=== PATIENT | male | born 1950 | race Caucasian/White ===

== ENCOUNTER → 2023-01-01 | Outpatient (CLI) | payer MEDICARE ==
[2023-01-01 16:08] LABS: African American GFR (CKD) 63.2 (60.0-200.0); Anion Gap 8.2 mmol/L (10.00-18.00); BUN/Creat Ratio 18.23 Ratio (12.00-20.00); Blood Urea Nitrogen 23.7 mg/dL (9.0-27.0); Calcium 9.3 mg/dL (8.7-10.3); Carbon Dioxide 29.8 mmol/L (20.0-27.5); Non-African American GFR(CKD) 54.5 (60.0-200.0); Potassium 4.7 mmol/L (3.5-5.5)
[2023-01-01 16:47] LABS: Basophils # (A) 0.06 X 10*3/uL (0.00-0.10); Basophils % (A) 0.7 %; Eosinophils # (A) 0.09 X 10*3/uL (0.04-0.35); Eosinophils % (A) 1.1 %; HCT 41.1 % (39.6-50.0); HGB 13.3 g/dL (13.0-17.0); Immature Grans, Automated 0.5 %; Lymphocytes # (A) 1.34 X 10*3/uL (0.90-5.00); MCH 31.8 pg (27.0-32.0); MCHC 32.4 g/dL (32.0-37.0); MCV 98.3 fL (80.0-97.0); Mean Platelet Volume 9.3 fL (9.5-12.2); Monocytes # (A) 0.63 X 10*3/uL (0.20-1.00); Monocytes % (A) 7.5 %; NRBC Per 100 WBC 0 /100 WBCS (0.0-0.0); Neutrophils % (A) 74.2 %; Platelet Count 309 X 10*3/uL (140-440); RBC 4.18 X 10*6/uL (4.40-5.60); RDW 12.2 % (11.5-14.5); WBC 8.36 X 10*3/uL (4.50-10.00)
== END | disposition home or self-care (01) ==
LOC: LABPAT 08:42
PROVIDERS: ATTEND Urology
DX: Z01.812 Encounter for preprocedural laboratory examination (principal); N20.0 Calculus of kidney; N20.1 Calculus of ureter
CPT/HCPCS: 36415; 80048; 85025

== ENCOUNTER 2023-01-04 08:25 | Day surgery (SDC) | payer MEDICARE ==
[2023-01-01 12:25] VITALS: BMI 30.6
--- NOTE | 2023-01-03 22:19 | P.GSHP ---
History of Present Illness H&P Date: 01/03/23 Chief Complaint: Left renal colic The patient is a 72-year-old white male with a history of urolithiasis. He has experienced left renal colic since early Dec, 2022. CT scan shows mild left hydronephrosis due to a 5 x 7 mm left UPJ calculus, as well as nonobstructing left renal calculi measuring up to 4 mm. - Constitutional Constitutional: Denies chills, Denies fever - Cardiovascular Cardiovascular: Reports high blood pressure - Gastrointestinal Gastrointestinal: Denies nausea, Denies vomiting - Genitourinary (Female) Genitourinary: Reports flank pain, Reports hematuria, Reports kidney stones Past Medical History Past Medical History: Deep Vein Thrombosis (DVT), Hypertension Additional Past Medical History / Comment(s): kidney stones History of Any Multi-Drug Resistant Organisms: None Reported Past Surgical History: Tonsillectomy Past Anesthesia/Blood Transfusion Reactions: No Reported Reaction Past Psychological History: No Psychological Hx Reported Smoking Status: Former smoker Past Alcohol Use History: Occasional Past Drug Use History: None Reported - Past Family History Mother Family Medical History: No Reported History Medications and Allergies Home Medications Medication Instructions Recorded Confirmed Type Lisinopril-Hctz 10-12.5 mg 1 tab PO DAILY 01/01/23 01/01/23 History [Zestoretic 10-12.5] Warfarin [Coumadin] 5 mg PO DIRECTED 01/01/23 01/01/23 History Allergies Allergy/AdvReac Type Severity Reaction Status Date / Time No Known Allergies Allergy Verified 01/01/23 12:14 Surgical - Exam - General well developed, well nourished, no distress - Respiratory normal respiratory effort - Abdomen Abdomen: soft, non tender, no guarding, no rigid, no rebound - Psychiatric oriented to time, oriented to person, oriented to place, speech is normal, memor y intact Results - Imaging CT scan - abdomen: report reviewed Assessment and Plan (1) Calculus of ureter Status: Acute Code(s): N20.1 - CALCULUS OF URETER SNOMED Code(s): 23752117 (2) Calculus of kidney Status: Acute Code(s): N20.0 - CALCULUS OF KIDNEY SNOMED Code(s): 68209906 Plan: The patient was offered the options of extracorporal shockwave lithotripsy (ESWL) versus ureteroscopy with laser lithotripsy and stone basketing. He has chosen the latter, and this has been reviewed in detail with the patient. He has been made aware of potential risks, which include anesthesia, bleeding, infection, ureteral injury, and inability to remove the calculi. The possible need for secondary treatment has also been discussed.
--- NOTE | 2023-01-04 08:52 | XR ---
EXAMINATION TYPE: XR KUB DATE OF EXAM: 01/04/2023 Comparison: None Clinical History: 72-year-old male left-sided kidney stone, preoperative assessment Findings: 5 mm calcification left mid abdomen. 9 mm calcification left side of the pelvis. Suspect some central prosthetic calcifications in the midline lower pelvis. Scattered moderate stool. Nonobstructive ella l gas pattern. Impression: 5 mm nonobstructive left renal calculus. An additional 9 mm calcification left side of the pelvis cou ld be in the distal ureter.
[2023-01-04 08:53] VITALS: RESP 16
[2023-01-04] MEDS ORDERED: LIDOCAINE 1% (10MG/ML) FOR IV START INTRADERMA ONE (08:55)
[2023-01-04] MEDS ORDERED: LACTATED RINGERS 1,000 ML IV ONE (08:55)
[2023-01-04] MEDS ORDERED: ONDANSETRON 4 MG/2 ML VIAL ONE (09:03)
[2023-01-04] MEDS ORDERED: DEXAMETHASONE SOD PHOSPHATE 4 MG/ML 1 ML VIAL IV ONE (09:05)
[2023-01-04] MEDS ORDERED: GLYCOPYRROLATE 0.2 MG/ML 2 ML VIAL ONE (10:07)
[2023-01-04] MEDS ORDERED: MIDAZOLAM 2 MG/2 ML VIAL ONE (10:07)
[2023-01-04] MEDS ORDERED: ROCURONIUM 10 MG/ML (5 ML VIAL) IV ONE (10:07)
[2023-01-04] MEDS ORDERED: fentaNYL (PF) 50 MCG/ML 2 ML AMP ONE (10:07)
[2023-01-04] MEDS ORDERED: SUCCINYLCHOLINE CHLORIDE 200 MG/10 ML VIAL IV ONE (10:07)
[2023-01-04] MEDS ORDERED: PROPOFOL 10 MG/ML 20 ML VIAL IV ONE (10:07)
[2023-01-04] MEDS ORDERED: NEOSTIGMINE 1 MG/ML 10 ML VIAL ONE (10:07)
[2023-01-04] MEDS ORDERED: LIDOCAINE 2% INJ 20 MG/ML (2 ML VIAL) ONE (10:07)
[2023-01-04 12:12] VITALS: TEMP 97.1
--- NOTE | 2023-01-04 12:45 | P.OP ---
Date of Procedure: 01/04/23 Preoperative Diagnosis: Left ureteral calculus, left renal calculi Postoperative Diagnosis: Same Procedure(s) Performed: Cystoscopy, left ureteroscopy with Holmium laser lithotripsy and stone basketing, right ureteral stent insertion Anesthesia: ANTONIOA Surgeon: Fredis Ramirez Estimated Blood Loss (ml): 5 IV fluids (ml): 500 Pathology: other Condition: stable Disposition: PACU Indications for Procedure: The patient is a 72-year-old white male with a history of urolithiasis. He has experienced left renal colic since early Dec, 2022. CT scan showed mild left hydronephrosis due to a 5 x 7 mm left UPJ calculus, as well as nonobstructing left renal calculi measuring up to 4 mm. Preoperative KUB x-ray shows that the UPJ calculus has migrated to the left distal ureter. Operative Findings: 6x9 mm left distal ureteral calculus, 5 mm left lower pole renal calculus. Both fragmented and removed completely. Description of Procedure: The patient was taken to the operating room and placed in the dorsolithotomy position, with legs supported in Oscar stirrups. The external genitalia was prepped and draped sterilely. The urethral meatus would not accommodate the 21- [place] Martinez cystoscopic sheath, so urethral dilation was performed using [place] sounds. The 30 lens was then used to introduce the 21-[place] Martinez cystoscopic sheath through the urethra. Within the bulbous urethra, a vertical band of scar tissue divided the urethra. The cystoscope was slowly advanced to the right of this band, and into the bladder under direct vision. The prostatic urethra showed evidence of mild lateral lobe enlargement. The bladder was examined in its entirety. Both ureteral orifices were normal anatomic location and configuration, and clear urine effluxed from both. No tumors or foreign bodies were seen. The Martinez semirigid ureteroscope was advanced into the bladder, but the left ureteral orifice could not be cannulated. Therefore, a 0.038 inch Glidewire was passed through the ureteroscope and up to the left renal pelvis, where it coiled. A 15-[place] Ze[place]ander, 4 cm balloon dilating catheter was then used to dilate the intramural portion of the ureter. Next, the Martinez semirigid ureteroscope was advanced into the bladder, and it was possible to cannulate the left ureteral orifice. The ureteroscope was slowly advanced under direct vision, up to the calculus. The 272 holmium laser probe was then used to fragment the calculus, and a 0 tip basket were used to remove all calculus fragments. Inspection of the ureter showed no evidence of ureteral trauma. A 0.038 inch Glidewire was passed through the ureteroscope, up to the left renal pelvis. The ureteroscope was removed, and an 11/13-[place] Ze[place]ander ureteral access catheter was passed over the wire, up to the proximal ureter. The [employer] flexible ureteroscope was then passed through the ureteral access catheter sheath and up to the left renal pelvis under direct vision. Each calyx was examined. A tiny calculus was seen within a lower pole calyx. An adjacent calyx contained a 5 mm stone, which was grasped with the basket and relocated into an upper pole calyx. The 272 micron Holmium laser probe was passed through the ureteroscope, and lithotripsy was performed. The 0 tip basket was used to remove the calculus fragments. Pullout ureteroscopy showed no evidence of ureteral trauma. The Glidewire was passed up to the left renal pelvis, and it was backloaded into the cystoscope. A 28 cm, 4.8-[place] double-J ureteral stent was placed over the wire. Proper stent positioning was verified fluoroscopically and endoscopically. The bladder was emptied and the cystoscope removed. The removed calculus fragments were saved and sent for chemical analysis. The patient tolerated the procedure well and was taken to the rec overy room in stable condition. Snapdeal Report: Procedure Acuity: Semi-Urgent Stone Size and Location: 6 x 9 mm, left distal ureter. A 5 mm, left lower pole kidney. Ureteral Dilation: Balloon Dilation Ureteral Access Sheath Used: Yes Stone Sent for Analysis: Yes All Stones/Fragments Were Removed with a Basket: Yes Complications: No Preoperative Antibiotics Given: Yes Stent Placed: Yes If Stent Placed, Was String Left Attached: No If Stent Placed, When is it to be Removed: 2 weeks Discharge Medications: Tamsulosin
[2023-01-04 12:57] VITALS: BP 130/66
[2023-01-04 13:12] VITALS: PULSE 50
--- NOTE | 2023-01-04 16:50 | FL ---
EXAMINATION TYPE: FL guidance operating room DATE OF EXAM: 01/04/2023 FLUOROSCOPY Fluoroscopy time of 21 seconds was used during urologic intervention with a lithotripsy and stent kyrie cement left ureter. 3 image/s document/s the procedure. DOSE AREA PRODUCT (DAP) UGY*M,MGY*CM: 3.203 1
== END 2023-01-04 13:38 | disposition home or self-care (01) ==
LOC: OR 08:25
PROVIDERS: ATTEND Urology
DX: N13.2 Hydronephrosis with renal and ureteral calculous obstruction (principal); N23 Unspecified renal colic; I10 Essential (primary) hypertension; Z87.891 Personal history of nicotine dependence; F10.20 Alcohol dependence, uncomplicated; Z79.01 Long term (current) use of anticoagulants; Z79.899 Other long term (current) drug therapy; Z86.718 Personal history of other venous thrombosis and embolism
CPT/HCPCS: 82365; 74018; 52356; C1769; C1894; J2250; J0330; J1100; J2710; J2405; J3010; J2704; J2001

== ENCOUNTER → 2023-02-16 | Outpatient (CLI) | payer MEDICARE ==
--- NOTE | 2023-02-16 09:03 | US ---
EXAMINATION TYPE: US kidneys/renal and bladder DATE OF EXAM: 02/16/2023 COMPARISON: NONE CLINICAL INDICATION: Male, 72 years old with history of N20.0,N20.1; hx left renal stone with surgica l removal. No pain. EXAM MEASUREMENTS: Right Kidney: 12.5 x 5.7 x 7.0 cm Left Kidney: 12.8 x 5.6 x 6.4 cm Right Kidney: Two simple appearing cysts seen with largest superior mid= 3.5 x 3.2 x 3.4 cm Left Kidney: Simple cyst seen = 1.6 x 1.8 x 1.6 cm Bladder: distended, anechoic. Wall = 0.3- 0.4 cm Bilateral Jets seen Some increased cortical echogenicity in the right kidney. There are simple appearing thin-walled cyst s marked by the technologist throughout both kidneys. No hydronephrosis is present bilaterally. Urina ry bladder is adequately distended. Bilateral distal ureter jets are seen. IMPRESSION: Evidence of chronic medical renal disease. No hydronephrosis is seen bilaterally on curre nt study.
== END | disposition home or self-care (01) ==
LOC: RADUSWWP 08:11
PROVIDERS: ATTEND Urology
DX: N13.2 Hydronephrosis with renal and ureteral calculous obstruction (principal); N28.89 Other specified disorders of kidney and ureter
CPT/HCPCS: 76770